=== PATIENT | female | born 2005 | race Hispanic/Latino ===

== ENCOUNTER 2024-01-31 19:20 | Emergency (ER) | payer SELFPAY ==
[2024-01-31 19:55] LABS: Bilirubin Negative (Negative); Blood, Urine 1+ (Negative); CAUTI Indications for Culture Pregnancy; Clarity Clear (Clear); Glucose, Urine (Dipstick) Normal (Negative); Ketone, Urine Negative (Negative); Leukocyte 250 Leu/uL (Negative); Nitrite Negative (Negative); Protein, Urine (Dipstick) Negative (Neg-Trace); RBC/HPF 0-3 HPF (0-3); Specific Gravity, Urine 1.004 (1.002-1.036); Urobilinogen Normal mg/dL (Less than 2)
[2024-01-31 19:56] LABS: Bacteria/HPF 1+ HPF (None Seen); Urine Culture Reflex Yes Yes
[2024-01-31 20:06] LABS: #Basophils Less than 0.03 10x3/uL (0.0-0.2); %Basophils 0.3 % (0.0-1.0); %Lymphocytes 25.6 % (28.0-48.0); %Monocytes 6.6 % (0.0-4.0); Hematocrit 34.4 % (36.0-47.0); Hemoglobin 12.1 g/dL (12.0-16.0); Mean Corpuscular HGB CONC 35.2 g/dL (32.0-36.0); Mean Corpuscular Hemoglobin 30.4 pg (25.0-35.0); Mean Corpuscular Volume 86.4 fL (78.0-98.0); Mean Platelet Volume 9.7 fL (7.4-10.4); Platelet Count 237 10x3/uL (130-400); RBC Distribution Width 12.3 % (11.5-14.5); Red Blood Cell (RBC) Count 3.98 mill/uL (4.00-5.20)
[2024-01-31 20:17] LABS: Anion Gap 14 mmol/L (10-20); Globulin 3.6 g/dL (2.4-3.5)
[2024-01-31 20:21] LABS: ALT (SGPT) 15 U/L (8-55); AST (SGOT) 18 U/L (5-34); Albumin 3.3 g/dL (3.5-5.0); Alkaline Phosphatase 58 U/L (40-100); BUN (Urea Nitrogen) 8 mg/dL (7.0-18.7); Bilirubin, Total 0.3 mg/dL (0.2-1.2); Calc. Creatinine Clearance 0 mL/min (70-130); Carbon Dioxide 19 mmol/L (22-29); Chloride 106 mmol/L (98-107); Estimated GFR 133; Glucose 98 mg/dL (70-105); Potassium 3.4 mmol/L (3.5-5.1); Protein, Total 6.9 g/dL (6.0-8.3); Sodium 136 mmol/L (136-145)
== END 2024-01-31 21:12 | disposition home or self-care (01) ==
LOC: ERS 19:20
DX: O20.0 Threatened abortion (principal); Z3A.01 Less than 8 weeks gestation of pregnancy
CPT/HCPCS: 36415; 76815; 80053; 81001; 85025; 86900; 86901; 87077; 87086

== ENCOUNTER 2024-04-16 10:35 | Outpatient (CLI) | payer OTHER | END 2024-04-16 10:36 | disposition home or self-care (01) | LOC: BICULT 10:35 | PROVIDERS: ATTEND Family Medicine | DX: Z34.82 Encounter for supervision of other normal pregnancy, second trimester (principal); Z3A.26 26 weeks gestation of pregnancy | CPT/HCPCS: 76805 ==